=== PATIENT | male | born 1985 | race Caucasian/White ===

== ENCOUNTER 2017-08-29 16:55 | Emergency (ER) | payer SELFPAY ==
[~2017-08-29] VITALS: Ht 188 cm; Wt 84.8 kg
[~2017-08-29 16:55] MED LIST: ALBU90OI61 INH; ALLO100; ALLO100 PO; CEFTR1PB IV; CLIN150 PO; COLCRYS0.6 MG PO; CYCL10 PO; Cefpodoxime Pr200 MG PO; Cleocin HCl300 MG PO; EC-Naprosyn500 MG PO; Esgic Tablet1 EACH PO; HYDACE5 PO; HYDR1TAB94 PO; IBUP600 PO; IBUP800 PO; INDO50 PO; Indomethacin50 MG PO; Keflex500 MG PO; Lamisil At24 GM TOP; Lotrimin Ultra12 GM TP; NAPR500 PO; Naprosyn500 MG PO; Norco 5-325 Ta1 EACH PO; OXYACE5T PO; OXYACE7.5T PO; PERM5TC TOP; PROACE100 PO; PROM25 PO; Percocet 5-3251 EACH PO; Prednisone20 MG PO; RXCLIN PO; RXPROACE PO; SULTRIDS PO; TRAM50 PO; Tylenol With C1 EACH PO; Ultram50 MG PO; Vibramycin100 MG PO; Zantac150 MG PO
[2017-12-04] MEDS ORDERED: CEPH500 PO (18:58)
[2017-12-04] MEDS ORDERED: Bactrim Ds Tab1 EACH PO (18:58)
[2017-12-04] MEDS ORDERED: Indomethacin50 MG PO (18:58)
== END 2017-08-29 18:40 | disposition left against medical advice (07) ==
LOC: ER 16:55
DX: Z53.21 Procedure and treatment not carried out due to patient leaving prior to being seen by health care provider (principal)

== ENCOUNTER 2017-09-23 22:08 | Emergency (ER) | payer OTHER ==
[~2017-09-23] VITALS: Ht 188 cm; Wt 83.9 kg
[2017-09-23 23:09] LABS: BASOPHILS ABSOLUTE AUTO 0.04 K/mm3 (0.00-0.23); BASOPHILS PERCENT AUTO 1 % (0-2); EOSINOPHILS ABSOLUTE AUTO 0.16 K/mm3 (0.00-0.68); EOSINOPHILS PERCENT AUTO 2 % (0-6); Hematocrit 42.3 % (37.0-53.0); IMMATURE GRAN ABSOLUTE AUTO 0.01 K/mm3 (0.00-0.10); IMMATURE GRAN PERCENT AUTO 0 % (0-1); LYMPHOCYTES ABSOLUTE AUTO 2.61 K/mm3 (0.84-5.20); LYMPHOCYTES PERCENT AUTO 37 % (21-46); MONOCYTES ABSOLUTE AUTO 0.39 K/mm3 (0.16-1.47); MONOCYTES PERCENT AUTO 6 % (4-13); Mean Corpuscular HGB 29.6 pg (26.0-34.0); Mean Corpuscular HGB Conc 33.1 g/dL (31.5-36.5); Mean Corpuscular Volume 89 fL (80-100); Mean Platelet Volume 9.2 fL (9.1-12.4); NEUTROPHILS ABSOLUTE AUTO 3.91 K/mm3 (1.96-9.15); NEUTROPHILS PERCENT AUTO 55 % (41-73); Platelet Count 270 K/mm3 (150-400); RDW Coefficient Variation 13.2 % (11.7-14.2); RDW Standard Deviation 43.4 fL (35.1-46.3); Red Blood Cell Count 4.73 M/mm3 (4.30-5.90); White Blood Cell Count 7.12 K/mm3 (4.00-11.30)
[2017-09-23 23:29] LABS: Alanine Aminotransfer (ALT/SGP 50 U/L (12-78); Albumin, Blood 3.4 g/dL (3.4-5.0); Albumin/Globulin Ratio 0.7 (0.8-1.8); Alk Phos 112 U/L (50-136); Anion Gap 5 mmol/L (6-16); Aspartate Aminotrans (AST/SGOT 39 U/L (12-37); Bilirubin, Total 0.3 mg/dL (0.1-1.0); Blood Urea Nitrogen 10 mg/dL (8-24); CO2, Blood 27 mmol/L (21-32); Calcium, Blood 8.7 mg/dL (8.5-10.1); Chloride, Blood 106 mmol/L (98-108); Creatinine, Blood 0.72 mg/dL (0.60-1.20); Globulin, Blood 5.2 g/dL (2.2-4.0); Glomerular Filtration Rate >60 (60-); Glucose, Blood 108 mg/dL (70-99); Potassium, Blood 4.1 mmol/L (3.5-5.5); Sodium, Blood 138 mmol/L (136-145); Total Protein, Blood 8.6 g/dL (6.4-8.2)
[2017-09-23] MEDS ORDERED: Indomethacin50 MG PO (23:53)
[2017-12-04] MEDS ORDERED: Bactrim Ds Tab1 EACH PO (18:58)
[2017-12-04] MEDS ORDERED: Indomethacin50 MG PO (18:58)
[2017-12-04] MEDS ORDERED: CEPH500 PO (18:58)
== END 2017-09-24 00:56 | disposition home or self-care (01) ==
LOC: ER 22:08
PROVIDERS: Internal Medicine
DX: M10.9 Gout, unspecified (principal); F31.9 Bipolar disorder, unspecified; Z88.0 Allergy status to penicillin; Z88.1 Allergy status to other antibiotic agents; Z88.8 Allergy status to other drugs, medicaments and biological substances; F17.210 Nicotine dependence, cigarettes, uncomplicated
CPT/HCPCS: 36415; 80053; 85025; 99283

== ENCOUNTER 2017-12-04 | Emergency (ER) | END 2017-12-04 19:06 | disposition home or self-care (01) ==

== ENCOUNTER 2018-05-14 16:46 | Emergency (ER) | payer OTHER ==
[~2018-05-14] VITALS: Ht 185.4 cm; Wt 82.1 kg
[~2018-05-14 16:46] MED LIST changes: +Bactrim Ds Tab1 EACH PO; +CEPH500 PO
[2018-05-14] MEDS ORDERED: Percocet 10-321 EACH PO (18:09)
[2018-05-14] MEDS ORDERED: IBUP800 PO (18:09)
== END 2018-05-14 18:25 | disposition home or self-care (01) ==
LOC: ER 16:46
DX: S42.032A Displaced fracture of lateral end of left clavicle, initial encounter for closed fracture (principal); S50.02XA Contusion of left elbow, initial encounter; S20.212A Contusion of left front wall of thorax, initial encounter; V29.9XXA Motorcycle rider (driver) (passenger) injured in unspecified traffic accident, initial encounter; Z88.0 Allergy status to penicillin; Z88.8 Allergy status to other drugs, medicaments and biological substances; F31.9 Bipolar disorder, unspecified; F90.9 Attention-deficit hyperactivity disorder, unspecified type
CPT/HCPCS: 29105; 71101; 73030; 73070; 96374; 96375; 99283-25; J1170; J1885

== ENCOUNTER 2021-09-26 00:17 | Emergency (ER) | payer OTHER ==
[~2021-09-26] VITALS: Ht 185.4 cm; Wt 93.9 kg
[~2021-09-26 00:17] MED LIST changes: +Percocet 10-321 EACH PO
[2021-09-26 00:45] LABS: BASOPHILS ABSOLUTE AUTO 0.04 K/mm3 (0.00-0.23); BASOPHILS PERCENT AUTO 0 % (0-2); Hematocrit 50.5 % (37.0-53.0); Hemoglobin 17.5 g/dL (13.5-17.5); LYMPHOCYTES PERCENT AUTO 9 % (21-46); MONOCYTES ABSOLUTE AUTO 1.14 K/mm3 (0.16-1.47); MONOCYTES PERCENT AUTO 6 % (4-13); Mean Corpuscular HGB Conc 34.7 g/dL (31.5-36.5); Mean Corpuscular Volume 81 fL (80-100); Mean Platelet Volume 9.7 fL (9.1-12.4); Platelet Count 348 K/mm3 (150-400); RDW Coefficient Variation 13.2 % (11.7-14.2); RDW Standard Deviation 38.3 fL (35.1-46.3); Red Blood Cell Count 6.24 M/mm3 (4.30-5.90)
[2021-09-26 00:46] LABS: EOSINOPHILS ABSOLUTE AUTO 1.96 K/mm3 (0.00-0.68); EOSINOPHILS PERCENT AUTO 10 % (0-6); IMMATURE GRAN ABSOLUTE AUTO 0.12 K/mm3 (0.00-0.10); IMMATURE GRAN PERCENT AUTO 1 % (0-1); NEUTROPHILS ABSOLUTE AUTO 13.94 K/mm3 (1.96-9.15); NEUTROPHILS PERCENT AUTO 74 % (41-73)
[2021-09-26 01:04] LABS: Alanine Aminotransfer (ALT/SGP 83 U/L (12-78); Albumin, Blood 4.8 g/dL (3.4-5.0); Alk Phos 141 U/L (50-136); Anion Gap 19 mmol/L (6-16); Aspartate Aminotrans (AST/SGOT 67 U/L (12-37); Bilirubin, Total 1.5 mg/dL (0.1-1.0); Blood Urea Nitrogen 31 mg/dL (8-24); Bun/Creatinine Ratio 28.7 (12.0-20.0); CO2, Blood 25 mmol/L (21-32); Calcium, Blood 10.7 mg/dL (8.5-10.1); Chloride, Blood 96 mmol/L (98-108); Creatinine, Blood 1.08 mg/dL (0.60-1.20); Glomerular Filtration Rate >60 (60-); Glucose, Blood 154 mg/dL (70-99); Potassium, Blood 3.8 mmol/L (3.5-5.5); Sodium, Blood 140 mmol/L (136-145); Total Protein, Blood 9.8 g/dL (6.4-8.2)
== END 2021-09-26 06:45 | disposition home or self-care (01) ==
LOC: ER 00:17
PROVIDERS: Student in an Organized Health Care Education/Training Program
DX: R11.2 Nausea with vomiting, unspecified (principal); F10.10 Alcohol abuse, uncomplicated; M10.9 Gout, unspecified; F17.210 Nicotine dependence, cigarettes, uncomplicated; Z88.0 Allergy status to penicillin; Z88.1 Allergy status to other antibiotic agents; Z88.8 Allergy status to other drugs, medicaments and biological substances
CPT/HCPCS: 80053; 83690; 84484; 85025; 93005; 93010; 96374; 96375; 99284-25; J1630; J2405; J2765; J7030

== ENCOUNTER → 2022-10-31 | Outpatient (CLI) | payer OTHER ==
[2022-10-31 13:19] LABS: BASOPHILS ABSOLUTE AUTO 0.03 K/mm3 (0.00-0.23); BASOPHILS PERCENT AUTO 1 % (0-2); EOSINOPHILS ABSOLUTE AUTO 0.19 K/mm3 (0.00-0.68); EOSINOPHILS PERCENT AUTO 3 % (0-6); Hematocrit 46.4 % (37.0-53.0); IMMATURE GRAN ABSOLUTE AUTO 0.02 K/mm3 (0.00-0.10); IMMATURE GRAN PERCENT AUTO 0 % (0-1); LYMPHOCYTES ABSOLUTE AUTO 1.83 K/mm3 (0.84-5.20); LYMPHOCYTES PERCENT AUTO 28 % (21-46); MONOCYTES ABSOLUTE AUTO 0.35 K/mm3 (0.16-1.47); MONOCYTES PERCENT AUTO 5 % (4-13); Mean Corpuscular HGB 27.8 pg (26.0-34.0); Mean Corpuscular HGB Conc 34.5 g/dL (31.5-36.5); Mean Corpuscular Volume 81 fL (80-100); Mean Platelet Volume 9.3 fL (9.1-12.4); NEUTROPHILS ABSOLUTE AUTO 4.12 K/mm3 (1.96-9.15); NEUTROPHILS PERCENT AUTO 63 % (41-73); Platelet Count 237 K/mm3 (150-400); RDW Coefficient Variation 13.1 % (11.7-14.2); RDW Standard Deviation 37.5 fL (35.1-46.3); Red Blood Cell Count 5.76 M/mm3 (4.30-5.90); White Blood Cell Count 6.54 K/mm3 (4.00-11.30)
[2022-10-31 13:30] LABS: Albumin, Blood 4.1 g/dL (3.4-5.0); Albumin/Globulin Ratio 0.9 (0.8-1.8); Bilirubin, Total 0.3 mg/dL (0.1-1.0); Bun/Creatinine Ratio 13.6 (12.0-20.0); Calcium, Blood 9.1 mg/dL (8.5-10.1); Creatinine, Blood 1.1 mg/dL (0.60-1.20); Globulin, Blood 4.4 g/dL (2.2-4.0); Potassium, Blood 3.9 mmol/L (3.5-5.5); Total Protein, Blood 8.5 g/dL (6.4-8.2); Uric Acid, Blood 5.2 mg/dL (3.5-7.2)
[2022-11-01 09:45] LABS: RA, SEMIQUANTITATIVE 16 IU/ml (<8); Rheumatoid Factor, Serum Positive (Negative)
== END | disposition home or self-care (01) ==
LOC: LAB SHORT 13:15
PROVIDERS: Chiropractor
DX: M79.671 Pain in right foot (principal); M79.672 Pain in left foot
CPT/HCPCS: 80053; 84550; 85025; 86430; 86431

== ENCOUNTER 2023-04-02 09:20 | Observation (INO) | payer OTHER ==
[~2023-04-02] VITALS: Ht 185.4 cm; Wt 94.1 kg
[2023-04-02] VITALS (11 sets, daily range): BP systolic 109–161; BP diastolic 69–97
[2023-04-02 10:27] LABS: BASOPHILS ABSOLUTE AUTO 0.03 K/mm3 (0.00-0.23); BASOPHILS PERCENT AUTO 1 % (0-2); EOSINOPHILS ABSOLUTE AUTO 0.17 K/mm3 (0.00-0.68); EOSINOPHILS PERCENT AUTO 3 % (0-6); Hemoglobin 15.3 g/dL (13.5-17.5); IMMATURE GRAN ABSOLUTE AUTO 0.01 K/mm3 (0.00-0.10); IMMATURE GRAN PERCENT AUTO 0 % (0-1); LYMPHOCYTES ABSOLUTE AUTO 1.45 K/mm3 (0.84-5.20); LYMPHOCYTES PERCENT AUTO 23 % (21-46); MONOCYTES ABSOLUTE AUTO 0.34 K/mm3 (0.16-1.47); MONOCYTES PERCENT AUTO 5 % (4-13); Mean Corpuscular HGB 27.3 pg (26.0-34.0); Mean Corpuscular HGB Conc 33.3 g/dL (31.5-36.5); Mean Corpuscular Volume 82 fL (80-100); NEUTROPHILS ABSOLUTE AUTO 4.31 K/mm3 (1.96-9.15); NEUTROPHILS PERCENT AUTO 68 % (41-73); Platelet Count 241 K/mm3 (150-400); RDW Coefficient Variation 14.5 % (11.7-14.2); RDW Standard Deviation 42.4 fL (35.1-46.3); White Blood Cell Count 6.31 K/mm3 (4.00-11.30)
[2023-04-02 11:28] LABS: Albumin, Blood 4.2 g/dL (3.4-5.0); Albumin/Globulin Ratio 0.9 (0.8-1.8); Bilirubin, Total 0.4 mg/dL (0.1-1.0); Bun/Creatinine Ratio 10.1 (12.0-20.0); Calcium, Blood 9.2 mg/dL (8.5-10.1); Creatinine, Blood 1.19 mg/dL (0.60-1.20); Globulin, Blood 4.6 g/dL (2.2-4.0); Potassium, Blood 4.3 mmol/L (3.5-5.5); Total Protein, Blood 8.8 g/dL (6.4-8.2)
[2023-04-02] MEDS ORDERED: HYDPAM100 PO (16:11)
[2023-04-02] MEDS ORDERED: QUET200 PO (16:12)
[2023-04-02] MEDS ORDERED: BUPROPION XL450 MG PO (16:16)
[2023-04-02] MEDS ORDERED: OMEP20ER PO (16:17)
[2023-04-02] MEDS ORDERED: FAMO20 PO (16:17)
[2023-04-02] MEDS ORDERED: BUSP10 PO (16:18)
--- NOTE | 2023-04-02 16:27 | NUR ---
SHIFT SUMMARY 1520 RECEIVED PT TO RM 305 VIA [facility]. PT ABLE TO TX SELF TO BED WITH SBA. ADMITTED FOR R FOOT INFECTION R/T RECENT SX. CORRECTIVE PINS IN TOES UNABLE TO BE REMOVED AND BECOMING INFECTED. IV ABX INFUSING TO RM. PT IS A&O, GEOFFREY AND CO-OP. 1610 DAY SX CALLED TO REPORT THEY WERE COMING UP TO RECEIVE PT FOR SX. PT NOTIFIED TO USE [facility]. PT GRATEFUL TO BE GOING TO SX. 1615 PT TAKEN DOWN TO SX. TO RETURN TO RM LATER.
--- NOTE | 2023-04-02 17:30 | NUR ---
04/02/23 1730 Brandie Pena NO PREOP ANTIBIOTICS ORDERED PER PATIENT IS ON SCHEDULED ANTIBIOTICS.
[2023-04-02] MEDS ORDERED: CATAPRES0.2 M1 PO (18:45)
--- NOTE | 2023-04-02 18:47 | NUR ---
PT RETURNED FROM SX; PINS REMOVED FROM ALL TOES ON R FOOT. GAUZE DRSG WITH DUGLAS WRAP TO R FOOT. PT TOLERATED WELL. VSS, BUT BP SLIGHTLY ELEVATED D/T PAIN AND NOT TAKING BP MED YET TODAY.
[2023-04-03 03:53] VITALS: BP 126/70
--- NOTE | 2023-04-03 04:07 | NUR ---
SHIFT SUMMARY JESÚS IS ALERT AND FULLY ORIENTED THIS SHIFT. HE HAD A SURGERY ON HIS RIGHT FOOT DURING DAY SHIFT. HE IS MOSTLY INDEPENDENT WITH ASSISTANCE NEEDED FOR TRANSFER. HE HAS SCANT BLOOD ON HIS FOOT DRESSING, AND COMPLAINS OF 7/10 PAIN IN THE FOOT TREATED WITH PRN PAIN MEDICATIONS. IV ABX ADMINISTERED PER EMAR. PT IS RESTING IN BED IN A LOW POSITION WITH THE CALL LIGHT IN REACH.
[2023-04-03 07:28] VITALS: BP 124/71
--- NOTE | 2023-04-03 12:20 | NUR ---
CALLED DR LUKE FOR PLAN OF CARE, PER DR LANDIN AND PT. DR LUKE STATED PT TO BE D/C'D ON PO ABX AUGMENTIN FOR 7 DAYS AND FOLLOW UP WITH HIM IN HIS OFFICE THIS WEEK OR EARLY NEXT WEEK AT THE LATEST. PT TO CALL DR LUKE'S OFFICE FOR APPOINTMENT. NOTIFIED DR LANDIN OF PLAN FROM DR LUKE.
[2023-04-03] MEDS ORDERED: DOXY100 PO (12:42)
[2023-04-03] MEDS ORDERED: OXYC5 PO (12:42)
--- NOTE | 2023-04-03 16:29 | NUR ---
PT RESTING QUIETLY AWAKE AT START OF SHIFT. RECEIVING IV ABX PER EMAR. PT INQUIRED ABOUT GOING HOME AT START OF SHIFT. DR LANDIN LATER IN TO SEE PT AND DISCUSS PLAN OF CARE AND WAITING FOR DR LUKE TO CLEAR PT FOR D/C. DR LUKE NOTIFIED AND STATED PT TO D/C HOME TODAY ON PO ABX AND F/U THIS WEEK IN HIS OFFICE. DR LANDIN THEN UPDATED AND PLACED ORDERS. MEDS FAXED TO [facility] PER PT REQUEST. IV ABX GIVEN PER EMAR. D/C INSTRUCTIONS REVIEWED WITH PT AGAIN; VERBALIZED UNDERSTANDING. IV SITES D/C'D WNL'S WHEN IV ABX COMPLETE. PT ASSISTED OUT TO ENTRANCE VIA W/C BY AUDIO INSTALLER. BELONGINGS IN HAND. S/O WAITING TO INDUSTRIAL ENGINEERING ANALYST PT.
== END 2023-04-03 15:15 | disposition home or self-care (01) ==
LOC: ER 09:20 → ERHOLD 09:21 → MEDS 09:21
PROVIDERS: Physician Assistant; Podiatrist Foot & Ankle Surgery; ADMIT Internal Medicine
PROC: 0QP104Z Removal of Internal Fixation Device from Sacrum, Open Approach (ICD-10-PCS; principal; 2023-04-02 17:00)
DX: T84.7XXA Infection and inflammatory reaction due to other internal orthopedic prosthetic devices, implants and grafts, initial encounter (principal); F31.9 Bipolar disorder, unspecified; K21.9 Gastro-esophageal reflux disease without esophagitis; F90.9 Attention-deficit hyperactivity disorder, unspecified type; M86.8X7 Other osteomyelitis, ankle and foot; L03.115 Cellulitis of right lower limb; M10.9 Gout, unspecified; M06.9 Rheumatoid arthritis, unspecified; F17.210 Nicotine dependence, cigarettes, uncomplicated; Z88.0 Allergy status to penicillin; Y83.8 Other surgical procedures as the cause of abnormal reaction of the patient, or of later complication, without mention of misadventure at the time of the procedure
CPT/HCPCS: 73620; 80053; 85025; 87070; 87205; 96365; 96366; 96368; 96375; 96376; 99285-25; A9270; G0378; J0692; J1100; J1885; J2250; J2270; J2405; J2704; J3010; J3370; J7050

== ENCOUNTER 2023-08-17 16:49 | Emergency (ER) | payer OTHER ==
[~2023-08-17] VITALS: Ht 185.4 cm; Wt 89.4 kg
[~2023-08-17 16:49] MED LIST changes: +BUPROPION XL450 MG PO; +BUSP10 PO; +CATAPRES0.2 M1 PO; +DOXY100 PO; +Etomidate 2MG / ML 10ML Vial IV ONE; +FAMO20 PO; +HYDPAM100 PO; +OMEP20ER PO; +OXYC5 PO; +QUET200 PO; +Rocuronium Bromide 10 MG/ML 5ML Injection IV ONE
[2023-08-17] MEDS ORDERED: Acetaminophen 500 MG Tab PO ONE (17:20)
[2023-08-17] MEDS ORDERED: Ketorolac Tromethamine 15mg Vial IV ONE (17:20)
[2023-08-17] MEDS ORDERED: buprenorphine HCL 2 MG TAB.SUBL SL ONE (17:20)
[2023-08-17 18:30] VITALS: BP 114/75
[2023-08-17] MEDS ORDERED: SUBOXONE 8 MG-1 EACH SL (18:33)
[2023-08-17] MEDS ORDERED: RX Prepack 2 Sprays Naloxone HCL 4 MG/SPRAY UD ONE (18:35)
[2023-08-20] MEDS ORDERED: Rocuronium Bromide 10 MG/ML 5ML Injection IV ONE (13:28)
[2023-08-20] MEDS ORDERED: Etomidate 2MG / ML 10ML Vial XX ONE (13:28)
== END 2023-08-17 18:41 | disposition home or self-care (01) ==
LOC: ER 16:49
DX: T40.411A Poisoning by fentanyl or fentanyl analogs, accidental (unintentional), initial encounter (principal); F11.90 Opioid use, unspecified, uncomplicated; M10.9 Gout, unspecified; Z88.0 Allergy status to penicillin; Z88.8 Allergy status to other drugs, medicaments and biological substances; Z79.899 Other long term (current) drug therapy; F17.210 Nicotine dependence, cigarettes, uncomplicated
CPT/HCPCS: 93005; 93010; 96374; 99284-25; A9270; J1885

== ENCOUNTER 2023-11-16 11:03 | Emergency (ER) | payer OTHER ==
[~2023-11-16] VITALS: Ht 185.4 cm; Wt 89.8 kg
[~2023-11-16 11:03] MED LIST changes: +BUPRENORPHIN-N1 EAC1 SL; -Etomidate 2MG / ML 10ML Vial IV ONE; +LIDO700A20 TOP; +NARCAN4 M1; -Rocuronium Bromide 10 MG/ML 5ML Injection IV ONE; +SUBOXONE 8 MG-1 EACH SL
[2023-11-16 11:48] VITALS: BP 142/90
[2023-11-16 12:35] LABS: BASOPHILS ABSOLUTE AUTO 0.04 K/mm3 (0.00-0.23); BASOPHILS PERCENT AUTO 0 % (0-2); EOSINOPHILS ABSOLUTE AUTO 0.09 K/mm3 (0.00-0.68); EOSINOPHILS PERCENT AUTO 1 % (0-6); Hematocrit 41.1 % (37.0-53.0); Hemoglobin 13.9 g/dL (13.5-17.5); IMMATURE GRAN ABSOLUTE AUTO 0.03 K/mm3 (0.00-0.10); IMMATURE GRAN PERCENT AUTO 0 % (0-1); LYMPHOCYTES ABSOLUTE AUTO 1.42 K/mm3 (0.84-5.20); LYMPHOCYTES PERCENT AUTO 15 % (21-46); MONOCYTES ABSOLUTE AUTO 0.44 K/mm3 (0.16-1.47); MONOCYTES PERCENT AUTO 5 % (4-13); Mean Corpuscular HGB 29.8 pg (26.0-34.0); Mean Corpuscular HGB Conc 33.8 g/dL (31.5-36.5); Mean Corpuscular Volume 88 fL (80-100); Mean Platelet Volume 9.1 fL (9.1-12.4); NEUTROPHILS ABSOLUTE AUTO 7.42 K/mm3 (1.96-9.15); NEUTROPHILS PERCENT AUTO 79 % (41-73); Platelet Count 324 K/mm3 (150-400); RDW Standard Deviation 44.9 fL (35.1-46.3); Red Blood Cell Count 4.67 M/mm3 (4.30-5.90); White Blood Cell Count 9.44 K/mm3 (4.00-11.30)
[2023-11-16] MEDS ORDERED: Budeprion Xl300 MG PO (12:45)
[2023-11-16] MEDS ORDERED: CATAPRES0.1 MG PO (12:45)
[2023-11-16] MEDS ORDERED: Chantix1 MG PO (12:46)
[2023-11-16] MEDS ORDERED: FAMO20 PO (12:46)
[2023-11-16 13:05] LABS: Albumin, Blood 3.7 g/dL (3.4-5.0); Albumin/Globulin Ratio 0.9 (0.8-1.8); Bilirubin, Total 0.6 mg/dL (0.1-1.0); Bun/Creatinine Ratio 9.8 (12.0-20.0); Calcium, Blood 9.5 mg/dL (8.5-10.1); Creatinine, Blood 0.81 mg/dL (0.60-1.20); Globulin, Blood 4.2 g/dL (2.2-4.0); Potassium, Blood 3.5 mmol/L (3.5-5.5); Total Protein, Blood 7.9 g/dL (6.4-8.2)
[2023-11-16] MEDS ORDERED: Ibuprofen 400 MG Tab PO ONE (13:45)
[2023-11-16] MEDS ORDERED: Acetaminophen 500 MG Tab PO ONE (13:50)
[2023-11-16] MEDS ORDERED: SULTRIDS PO (13:55)
[2023-11-16] MEDS ORDERED: Cephalexin500 M1 PO (13:55)
[2023-11-16] MEDS ORDERED: IBUP800 PO (13:55)
== END 2023-11-16 14:10 | disposition home or self-care (01) ==
LOC: ER 11:03
PROVIDERS: Student in an Organized Health Care Education/Training Program
DX: L03.115 Cellulitis of right lower limb (principal); S90.31XA Contusion of right foot, initial encounter; F17.210 Nicotine dependence, cigarettes, uncomplicated; X58.XXXA Exposure to other specified factors, initial encounter; Z87.39 Personal history of other diseases of the musculoskeletal system and connective tissue; Z86.73 Personal history of transient ischemic attack (TIA), and cerebral infarction without residual deficits; Z88.0 Allergy status to penicillin; Z88.5 Allergy status to narcotic agent; Z79.899 Other long term (current) drug therapy
CPT/HCPCS: 73630; 80053; 85025; A9270

== ENCOUNTER 2023-12-21 21:00 | Emergency (ER) | payer OTHER ==
[~2023-12-21] VITALS: Ht 185.4 cm; Wt 98.0 kg
[~2023-12-21 21:00] MED LIST changes: +Budeprion Xl300 MG PO; +CATAPRES0.1 MG PO; +Cephalexin500 M1 PO; +Chantix1 MG PO
[2023-12-21] MEDS ORDERED: NS 1,000 ML IV SCH ×2 (21:40→23:05)
[2023-12-21] MEDS ORDERED: Ondansetron HCl 2 MG / ML 2ML Vial IV ONE (21:40)
[2023-12-21 21:45] LABS: BASOPHILS ABSOLUTE AUTO 0.03 K/mm3 (0.00-0.23); BASOPHILS PERCENT AUTO 1 % (0-2); EOSINOPHILS ABSOLUTE AUTO 0.04 K/mm3 (0.00-0.68); EOSINOPHILS PERCENT AUTO 1 % (0-6); Hematocrit 42.4 % (37.0-53.0); Hemoglobin 14.6 g/dL (13.5-17.5); IMMATURE GRAN ABSOLUTE AUTO 0.01 K/mm3 (0.00-0.10); IMMATURE GRAN PERCENT AUTO 0 % (0-1); LYMPHOCYTES ABSOLUTE AUTO 0.57 K/mm3 (0.84-5.20); LYMPHOCYTES PERCENT AUTO 9 % (21-46); MONOCYTES ABSOLUTE AUTO 0.51 K/mm3 (0.16-1.47); MONOCYTES PERCENT AUTO 8 % (4-13); Mean Corpuscular HGB 29.4 pg (26.0-34.0); Mean Corpuscular HGB Conc 34.4 g/dL (31.5-36.5); Mean Corpuscular Volume 85 fL (80-100); Mean Platelet Volume 9.4 fL (9.1-12.4); NEUTROPHILS ABSOLUTE AUTO 5.02 K/mm3 (1.96-9.15); NEUTROPHILS PERCENT AUTO 81 % (41-73); NRBC ABSOLUTE 0.03 K/mm3 (0.00-0.02); NRBC Auto 0.5 /100 WBC (0.0-0.2); Platelet Count 255 K/mm3 (150-400); RDW Coefficient Variation 13.4 % (11.7-14.2); RDW Standard Deviation 41.9 fL (35.1-46.3); Red Blood Cell Count 4.97 M/mm3 (4.30-5.90); White Blood Cell Count 6.18 K/mm3 (4.00-11.30)
[2023-12-21 22:01] LABS: Albumin, Blood 3.8 g/dL (3.4-5.0); Albumin/Globulin Ratio 0.8 (0.8-1.8); Bilirubin, Total 0.8 mg/dL (0.1-1.0); Calcium, Blood 9.4 mg/dL (8.5-10.1); Creatinine, Blood 0.73 mg/dL (0.60-1.20); Globulin, Blood 4.5 g/dL (2.2-4.0); Potassium, Blood 4.2 mmol/L (3.5-5.5); Total Protein, Blood 8.3 g/dL (6.4-8.2)
[2023-12-21] MEDS ORDERED: FAMO20 (22:05)
[2023-12-21] MEDS ORDERED: HYDHCL25 (22:06)
[2023-12-21 22:52] LABS: Influenza A, PCR NEGATIVE (NEGATIVE); Influenza B, PCR NEGATIVE (NEGATIVE); Resp Syncytial Virus, PCR NEGATIVE (NEGATIVE); SARS-Cov-2 (COVID-19) PCR, MMC NEGATIVE (NEGATIVE)
[2023-12-21] MEDS ORDERED: ONDA4ODT MM (23:18)
[2023-12-21 23:42] VITALS: BP 117/78
== END 2023-12-21 23:42 | disposition home or self-care (01) ==
LOC: ER 21:00
PROVIDERS: Emergency Medicine
DX: R11.2 Nausea with vomiting, unspecified (principal); Z88.0 Allergy status to penicillin; Z88.8 Allergy status to other drugs, medicaments and biological substances; Z79.899 Other long term (current) drug therapy; M10.9 Gout, unspecified; F17.210 Nicotine dependence, cigarettes, uncomplicated
CPT/HCPCS: 0241U; 80053; 85025; 93005; 93010; 96361; 96374; 99284-25; J2405; J7030

== ENCOUNTER 2024-11-15 10:50 | Emergency (ER) | payer OTHER ==
[~2024-11-15] VITALS: Ht 185.4 cm; Wt 89.4 kg
[~2024-11-15 10:50] MED LIST changes: +FAMO20; +HYDHCL25; +ONDA4ODT MM
[2024-11-15] MEDS ORDERED: Vancomycin HCL 2,000 MG in NS 520 ML IV ONE (12:35)
[2024-11-15 13:05] LABS: BASOPHILS ABSOLUTE AUTO 0.03 K/mm3 (0.00-0.23); BASOPHILS PERCENT AUTO 0 % (0-2); EOSINOPHILS PERCENT AUTO 2 % (0-6); Hematocrit 37.2 % (37.0-53.0); Hemoglobin 12.1 g/dL (13.5-17.5); IMMATURE GRAN ABSOLUTE AUTO 0.03 K/mm3 (0.00-0.10); IMMATURE GRAN PERCENT AUTO 0 % (0-1); LYMPHOCYTES ABSOLUTE AUTO 1.28 K/mm3 (0.84-5.20); LYMPHOCYTES PERCENT AUTO 15 % (21-46); MONOCYTES PERCENT AUTO 6 % (4-13); Mean Corpuscular HGB 28.1 pg (26.0-34.0); Mean Corpuscular HGB Conc 32.5 g/dL (31.5-36.5); Mean Corpuscular Volume 87 fL (80-100); Mean Platelet Volume 9.4 fL (9.1-12.4); NEUTROPHILS ABSOLUTE AUTO 6.64 K/mm3 (1.96-9.15); NEUTROPHILS PERCENT AUTO 77 % (41-73); Platelet Count 225 K/mm3 (150-400); RDW Coefficient Variation 14.4 % (11.7-14.2); RDW Standard Deviation 45.5 fL (35.1-46.3); White Blood Cell Count 8.68 K/mm3 (4.00-11.30)
[2024-11-15] MEDS ORDERED: Acetaminophen 500 MG Tab PO ONE (13:05)
[2024-11-15] MEDS ORDERED: Ketorolac Tromethamine 15mg Vial IV ONE (13:05)
[2024-11-15 13:22] LABS: Albumin, Blood 3.5 g/dL (3.4-5.0); Bilirubin, Total 0.4 mg/dL (0.1-1.0); Bun/Creatinine Ratio 17.2 (12.0-20.0); Calcium, Blood 9.1 mg/dL (8.5-10.1); Creatinine, Blood 0.7 mg/dL (0.60-1.20); Globulin, Blood 3.4 g/dL (2.2-4.0); Total Protein, Blood 6.9 g/dL (6.4-8.2)
[2024-11-15] MEDS ORDERED: CEPH500 PO (14:36)
[2024-11-15] MEDS ORDERED: SULTRIDS PO (14:36)
[2024-11-15 15:00] VITALS: BP 128/93
== END 2024-11-15 15:18 | disposition home or self-care (01) ==
LOC: ER 10:50
PROVIDERS: Student in an Organized Health Care Education/Training Program
DX: L03.116 Cellulitis of left lower limb (principal); F17.210 Nicotine dependence, cigarettes, uncomplicated; Z79.899 Other long term (current) drug therapy; Z88.0 Allergy status to penicillin; Z88.8 Allergy status to other drugs, medicaments and biological substances
CPT/HCPCS: 73630; 80053; 84550; 85025; 86140; 96365; 96366; 96375; 99283-25; A9270; J1885; J3370; J7040

== ENCOUNTER 2024-11-23 15:02 | Emergency (ER) | payer OTHER ==
[~2024-11-23] VITALS: Ht 170.2 cm; Wt 72.6 kg
[2024-11-23 15:28] VITALS: BP 140/86
[2024-11-23] MEDS ORDERED: BETA.05TCA TOP (15:31)
[2024-11-23] MEDS ORDERED: Benadryl 50 mg50 MG PO (15:31)
== END 2024-11-23 15:31 | disposition home or self-care (01) ==
LOC: ER 15:02
DX: S40.862A Insect bite (nonvenomous) of left upper arm, initial encounter (principal); S10.96XA Insect bite of unspecified part of neck, initial encounter; Z88.0 Allergy status to penicillin; Z88.1 Allergy status to other antibiotic agents; Z79.899 Other long term (current) drug therapy; Z79.2 Long term (current) use of antibiotics; W57.XXXA Bitten or stung by nonvenomous insect and other nonvenomous arthropods, initial encounter
CPT/HCPCS: 99281

== ENCOUNTER 2025-04-11 20:16 | Emergency (ER) | payer OTHER ==
[~2025-04-11] VITALS: Ht 185.4 cm; Wt 93.9 kg
[~2025-04-11 20:16] MED LIST changes: +BETA.05TCA TOP; +Benadryl 50 mg50 MG PO
[2025-04-11 21:37] VITALS: BP 126/108
[2025-04-11] MEDS ORDERED: Ondansetron HCl 2 MG / ML 2ML Vial IV ONE (21:40)
[2025-04-11 22:33] LABS: BASOPHILS ABSOLUTE AUTO 0.05 K/mm3 (0.00-0.23); BASOPHILS PERCENT AUTO 1 % (0-2); EOSINOPHILS ABSOLUTE AUTO 0.05 K/mm3 (0.00-0.68); EOSINOPHILS PERCENT AUTO 1 % (0-6); Hematocrit 38.1 % (37.0-53.0); Hemoglobin 12.9 g/dL (13.5-17.5); IMMATURE GRAN ABSOLUTE AUTO 0.04 K/mm3 (0.00-0.10); IMMATURE GRAN PERCENT AUTO 0 % (0-1); LYMPHOCYTES ABSOLUTE AUTO 0.73 K/mm3 (0.84-5.20); LYMPHOCYTES PERCENT AUTO 8 % (21-46); MONOCYTES ABSOLUTE AUTO 0.45 K/mm3 (0.16-1.47); MONOCYTES PERCENT AUTO 5 % (4-13); Mean Corpuscular HGB Conc 33.9 g/dL (31.5-36.5); Mean Corpuscular Volume 81 fL (80-100); NEUTROPHILS ABSOLUTE AUTO 8.29 K/mm3 (1.96-9.15); NEUTROPHILS PERCENT AUTO 86 % (41-73); NRBC ABSOLUTE 0.00 K/mm3 (0.00-0.02); NRBC Auto 0.0 /100 WBC (0.0-0.2); Platelet Count 241 K/mm3 (150-400); RDW Coefficient Variation 13.7 % (11.7-14.2); RDW Standard Deviation 40.4 fL (35.1-46.3)
[2025-04-11 22:54] LABS: Alanine Aminotransfer (ALT/SGP 77.0 U/L (12-78); Albumin, Blood 4.1 g/dL (3.4-5.0); Albumin/Globulin Ratio 1.0 (0.8-1.8); Anion Gap 10.0 mmol/L (3-11); Aspartate Aminotrans (AST/SGOT 87.0 U/L (12-37); Bilirubin, Total 0.6 mg/dL (0.1-1.0); Blood Urea Nitrogen 24.0 mg/dL (8-24); CO2, Blood 24.0 mmol/L (21-32); Calcium, Blood 9.2 mg/dL (8.5-10.1); Chloride, Blood 107.0 mmol/L (98-108); Creatinine, Blood 0.73 mg/dL (0.60-1.20); Globulin, Blood 4.0 g/dL (2.2-4.0); Glucose, Blood 121.0 mg/dL (70-99); Magnesium, Blood 2.3 mg/dL (1.6-2.4); Potassium, Blood 3.6 mmol/L (3.5-5.5); Sodium, Blood 137.0 mmol/L (136-145); Total Protein, Blood 8.1 g/dL (6.4-8.2)
== END 2025-04-12 00:28 | disposition left against medical advice (07) ==
LOC: ER 20:16
PROVIDERS: Student in an Organized Health Care Education/Training Program
DX: K92.0 Hematemesis (principal); R07.9 Chest pain, unspecified; F10.90 Alcohol use, unspecified, uncomplicated; Z88.0 Allergy status to penicillin; Z88.1 Allergy status to other antibiotic agents; Z79.899 Other long term (current) drug therapy; F17.210 Nicotine dependence, cigarettes, uncomplicated; Z53.29 Procedure and treatment not carried out because of patient's decision for other reasons
CPT/HCPCS: 71045; 80053; 83735; 84484; 85025; 85730; 93005; 93010; 96361; 96374; 99285-25; J2405; J7120

== ENCOUNTER 2025-04-20 08:49 | Emergency (ER) | payer OTHER ==
[~2025-04-20] VITALS: Ht 185.4 cm; Wt 95.7 kg
[2025-04-20 09:18] VITALS: BP 141/95
[2025-04-20] MEDS ORDERED: ERYT1OIN LEFTEYE (09:20)
== END 2025-04-20 09:22 | disposition home or self-care (01) ==
LOC: ER 08:49
DX: H10.9 Unspecified conjunctivitis (principal); Z88.0 Allergy status to penicillin; Z79.899 Other long term (current) drug therapy; Z59.89 Other problems related to housing and economic circumstances
CPT/HCPCS: 99282